=== PATIENT | female | born 1980 | race Caucasian/White ===

== ENCOUNTER → 2020-11-14 10:54 | Outpatient (CLI) | payer OTHER, BC, SELFPAY ==
--- NOTE | 2020-11-14 11:01 | XR_ITS ---
PROCEDURE: XR SHOULDER RT MIN 2V CLINICAL INDICATION: RT ANTERIOR SHOULDER PAIN COMPARISON: No exams were available for comparison FINDINGS: No fracture or dislocation. No lytic or blastic change. There is normal mineralization. The joint spaces are well-preserved. No significant degenerative/arthritic changes. No erosive changes evident. Other findings:There are mild hypertrophic changes of the distal aspect of the clavicle superiorly but no significant subacromial stenosis. IMPRESSION: Hypertrophy of the superior and distal aspect of the clavicle otherwise negative Dictated by: Chano Martinez MD 11/14/2020 12:16 Chano Martinez MD in [place] 11/14/2020 12:16
== END ==
PROVIDERS: PCP Nurse Practitioner Family; Visit Provider Nurse Practitioner Family
DX: M25.511 Pain in right shoulder (principal)
CPT/HCPCS: 73030

== ENCOUNTER → 2020-12-01 13:19 | Outpatient (CLI) | payer BC, SELFPAY | PROVIDERS: PCP Nurse Practitioner Family; Visit Provider Nurse Practitioner | DX: Z20.822 Contact with and (suspected) exposure to COVID-19 (principal) | CPT/HCPCS: C9803; U0003; U0005 ==

== ENCOUNTER 2021-01-09 10:00 | Outpatient (RCR) | payer OTHER, SELFPAY ==
--- NOTE | 2020-12-12 10:36 | HMH.OTOPEV ---
OT Inpatient Evaluation Rehab OT Outpatient Eval Start: 12/12/20 10:23 Freq: Status: Active Protocol: Document 12/12/20 10:24 RMARSHALL (Rec: 12[facility]12/20 10[facility]36 [id number] Electronically Signed By Yue Gomez OT 12/12/20 10:24 Outpatient Therapy Subjective History Subjective History Pt is a 40 year old female who reports to therapy for initial evaluation to right shoulder. 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 This specific area does require repetitive us of bilateral UE' s; some movements require her to lift overhead. Pt has been working at this job for 8 years. She does not recall a specific accident initiating her pain at right shoulder. However, her pain started ~5-6 weeks ago. Pt does test positive for Right shoulder impingement. Pt demonstrates a slight decreased in AROM and strength. Pt will continue to be seen twice a week to address all deficits. Chief Complaint Pain,Stiff,Weakness Symptom Type Ache,Throb,Sharp,Dull Symptoms Relieved By Rest/Positioning,OTC Meds, Prescription Meds Symptoms Aggravated By Physical Activity,Lifting Prior Functional Limitations None Current Functional Limitations Reaching,Lifting,Housework, Sleeping,Recreation Activity Symptom Description Intermittent,Activity Dependent Level of pain today (0-10) 2 Pain scale - at its best (0-10) 0 Pain scale - at its worst (0-10) 7 Shoulder/Elbow Eval Shoulder Objective Measurements Shoulder ROM Right Shoulder Abduction Active Range of 140 degrees Motion (degrees) Shoulder Flexion Active Range of Motion 130 degrees (degrees) Query Text: Shoulder External Rotation Active Range 75 degrees of Motion (degrees) Shoulder Internal Rotation Active Range 55 degrees of Motion (degrees) Shoulder MMT Shoulder Abduction Strength Grade 3 Fair Shoulder Extension Strength Grade 3 Fair Shoulder Flexion Strength Grade 3- Fair- Shoulder External Rotation Strength 3- Fair- Grade Shoulder Internal Rota
--- NOTE | 2021-01-09 10:52 | HMH.RHREAS ---
Rehab Reassessment Rehab OP Re-assessment Start: 01/09/21 10:02 Freq: Status: Active Protocol: Document 01/09/21 10:02 YECENIA (Rec: 01/09/21 10:52 [id number] Electronically Signed By Yue Gomez OT 01/09/21 10:02 Rehab Re-assessment Subjective Subjective I am still having pain. Objective Objective Notes Pt continues to be seen twice a week in order to address Right shoulder. Each session pt engages in R shoulder AROM, AAROM, and strengthenign exercises. Pt also receives modalities in order to decrease pain. Assessment Assessment Notes Pt's AROM has improved minimally since initial evaluation. However, pt continues to complain of 6/10 pain at it's worst. Pt reports the pain is not constant, but after using the the arm all day at work she still has pain. As of right now, she is not on any restrictions at work and is continuing to do a lot of lifting, push/pull, and overhead use. Therapist has recommended pt return to doctor for possible referral to ortho and MRI for further evaluation. AROM/MMT R shoulder Flexion: 138 degrees; 3+ Abd: 140 degrees; 3+ ER: 90 degrees: 3+ IR: 90 degrees ; 3+ Patient goals met ST, 3, and 5 Goals Not Met Seel below Revised Goals ST and 4 LT-5 Plan Plan Continue with OT plan of care at this time. Therapist recommends she returns to the doctor for further evaluation due to continued pain. Frequency of Therapy 2x's a week Duration of therapy 4 weeks Time and Billing Re-Eval Time 10 Re-Eval Billing Units 1 PHYSICIAN CERTIFICATION: I certify the specified therapy services for S
== END 2021-01-09 10:05 | disposition home or self-care (01) ==
LOC: OT 10:00
PROVIDERS: Visit Provider Nurse Practitioner Family
DX: M25.511 Pain in right shoulder (principal)
CPT/HCPCS: 97014; 97110; 97164; 97166; G0283

== ENCOUNTER 2021-08-02 01:07 | Emergency (ER) | payer BC, SELFPAY ==
[2021-08-02 01:08] VITALS: BP 149/89; PULSE 131; RESP 22; TEMP 37.3; O2SAT 99; BMI 28.3
[2021-08-02 01:15] VITALS: BMI 28.3
--- NOTE | 2021-08-02 01:16 | XR_ITS ---
PROCEDURE INFORMATION: Exam: XR Chest Exam date and time: 08/02/2021 1:36 AM Age: 41 years old Clinical indication: Fever and tachypnea; Additional info: Fever, shaking TECHNIQUE: Imaging protocol: XR of the chest. Views: 2 views. COMPARISON: CR XR SHOULDER RT MIN 2V 11/14/2020 11:03 AM FINDINGS: Lungs: Unremarkable. No consolidation. Pleural spaces: Unremarkable. No pleural effusion. No pneumothorax. Heart/Mediastinum: Unremarkable. No cardiomegaly. Bones/joints: Unremarkable. IMPRESSION: No acute cardiopulmonary abnormality.
--- NOTE | 2021-08-02 01:16 | ECG_ITS ---
APPROVED REPORT Exam: Resting ECG HR:136 bpm ECG Measurements Heart Rate 136 AXES UT 112 P 55 QRSd 100 QRS 64 QT 331 T 15 QTc 410 Conclusion SINUS TACHYCARDIA WITH SHORT UT INTERVAL NONSPECIFIC ST & T-WAVE ABNORMALITY ABNORMAL RHYTHM ECG UNCONFIRMED REPORT Electronically signed by : Frederick Alvarez MD 08/02/2021 08:42:48
[2021-08-02 01:29] LABS: Basophils # 0.1 K/mm3 (0-0.2); Basophils % 1.3 % (0.1-2.0); Eosinophils # 0.2 K/mm3 (0.0-0.4); Eosinophils % 1.9 % (0.1-12.0); Hematocrit 33.9 % (37.0-47.0); Hemoglobin 10.7 g/dL (12.2-16.2); Lymphocytes # 1.2 K/mm3 (0.7-4.5); Lymphocytes % 14.3 % (10-50); Mean Corpuscular HGB Conc 31.7 g/dL (31.8-35.4); Mean Corpuscular Hemoglobin 25.7 pg (27.0-31.2); Mean Corpuscular Volume 81.1 fl (81-99); Mean Platelet Volume 7.2 fl (7.4-10.4); Monocytes # 0.1 K/mm3 (0.1-1.0); Monocytes % 1.4 % (1.7-9.3); Neutrophils # 6.6 K/mm3 (1.8-7.8); Neutrophils % 81.2 % (37.0-80.0); Platelet Count 921 K/mm3 (142-424); Red Blood Count 4.18 M/mm3 (4.20-5.40); Red Cell Distribution Width 18.1 % (11.5-17.5); White Blood Count 8.1 K/mm3 (4.8-10.8)
[2021-08-02 01:30] VITALS: BP 134/92; PULSE 131; RESP 22; O2SAT 95
[2021-08-02 01:32] LABS: Chloride 108 mmol/L (98-107); Potassium 3.7 mmoL/L (3.5-5.1); Sodium 140 mmol/L (136-145)
[2021-08-02 01:35] LABS: Alanine Aminotransferase 23 U/L (12-78); Albumin Level 3.9 g/dl (3.5-5.0); Albumin/Globulin Ratio 1.3 (1.1-1.8); Alkaline Phosphatase 95 U/L (38-126); Anion Gap 13.7 mEq/L (5-15); Aspartate Amino Transferase 28 U/L (14-36); Bilirubin,Total 0.3 mg/dl (0.2-1.3); Blood Urea Nitrogen 15 mg/dl (7-17); Calcium 9.3 mg/dl (8.4-10.2); Carbon Dioxide 22 mmol/L (22.0-30.0); Creatinine Clearance Estimated 130 mL/min (50-200); Estimated Glomerular Filt Rate 93 ml/min (>60); GFR (African American) 112 ML/MIN (>60); Globulin 3.1 g/dL (1.3-3.2); Glucose 174 mg/dl (74-100)
[2021-08-02 01:59] LABS: Coronavirus 19, PCR Not Detected (NotDetected); Influenza A, PCR Not Detected (NotDetected); Influenza B, PCR Not Detected (NotDetected)
[2021-08-02 02:00] VITALS: BP 140/77; PULSE 131; RESP 22; O2SAT 95
[2021-08-02 02:03] LABS: Procalcitonin 0.255 ng/mL (0.0-2.0)
[2021-08-02 02:04] LABS: Erythrocyte Sedimentation Rate 71 mm/hr (0-20); Troponin I < 0.01 ng/ml (0.00-0.034)
[2021-08-02 02:13] LABS: Microscopic, Urine URINE MICROSCOPIC (MICROSCOPIC)
[2021-08-02 02:14] LABS: Appearance,Urine CLEAR (Clear); Bilirubin,Urine Negative (Negative); Blood, Urine Negative (Negative); Color,Urine YELLOW (Yellow); Glucose,Urine (UA) Negative (Negative); Ketones,Urine Negative (Negative); Leukocyte Esterase,Urine 1+ (Negative); Nitrate,Urine Negative (Negative); PH,Urine 5.5 (5.0-8.5); Protein,Urine Negative (Negative); Specific Gravity, Urine 1.015 (1.005-1.030); Urobilinogen,Urine 0.2 EU/dl (0.2)
[2021-08-02 02:23] LABS: Activated Partial Thrombo Time 22.5 seconds (22.8-30.6); INR 0.94 (0.9-1.1); Prothrombin Time 10.7 seconds (10.1-12.5)
[2021-08-02 02:30] LABS: Bacteria,Urine 1+ /lpf
[2021-08-02 02:31] VITALS: BP 116/60; PULSE 123; RESP 16; O2SAT 95
--- NOTE | 2021-08-02 02:38 | HMH.EDANX ---
ED Disposition Clinical Impression: SIRS (systemic inflammatory response syndrome), Severe sepsis with acute organ dysfunction UTI (urinary tract infection) Qualifiers: Urinary tract infection type: site unspecified Hematuria presence: without hematuria Qualified Code(s): N39.0 - Urinary tract infection, site not specified Disposition: Home, Self-Care Condition on Discharge: Good Instructions: DI for Urinary Tract Infection (UTI) Additional Instructions: fluids and call pcp about culture results Prescriptions: levoFLOXacin [Levaquin 500mg tab] 500 mg PO DAILY #7 tab Transmission Status: Pending to [facility] Referrals: Maryam Drake APRN [Primary Care Provider] - - Critical Care Critical Care Time: No Attestation: On 08/02/21, the high probability of a clinically significant, sudden or life threatening deterioration of the following system(s) required my full and direct attention, intervention and personal management. The time I documented below is in addition to time spent performing reported procedures but includes the following listed in this critical care notation. Medical Decision Making - Medical Records Medical records reviewed: Yes: I reviewed the patient's medical records. - Mikal Inquiry Pt receiving controlled substance: No Vital Signs: 08/02/21 01:08 08/02/21 01:30 08/02/21 02:00 Temperature 99.2 F Temperature Source Oral Pulse Rate 131 H 131 H Pulse Rate [Right] 131 H Respiratory Rate 22 22 22 Blood Pressure 134/92 H 140/77 Blood Pressure [Right Arm] 149/89 H Blood Pressure Mean 116 98 Blood Pressure Mean [Right Arm] 109 02 Sat by Pulse Oximetry 99 95 95 08/02/21 02:31 Temperature Temperature Source Pulse Rate 123 H Pulse Rate [Right] Respiratory Rate 16 Blood Pressure 116/60 Blood Pressure [Right Arm] Blood Pressure Mean 78 Blood Pressure Mean [Right Arm] 02 Sat by Pulse Oximetry 95 - Lab Data Lab results reviewed: Yes: I reviewed the patient's lab results. Lab Results 08/02/21 01:20: WBC 8.1, RBC 4.18 L, Hgb 10.7 L, Hct 33.9 L, MCV 81.1, MCH 25.7 L, MCHC 31.7 L, RDW 18.1 H, Plt Count 921 H*, MPV 7.2 L, Neut % (Auto) 81.2 H, Lymph % (Auto) 14.3, [place] % (Auto) 1.4 L, Eos % (Auto) 1.9, Baso % (Auto) 1.3, Neut # (Auto) 6.6, Lymph # (Auto) 1.2, [place] # (Auto) 0.1, Eos # (Auto) 0.2, Baso # (Auto) 0.1, ESR 71 H 08/02/21 01:20: Sodium 140, Potassium 3.7, Chloride 108 H, Carbon Dioxide 22, Anion Gap 13.7, BUN 15, Creatinine 0.70, Estimated Creat Clear 130, Estimated GFR 93, Est GFR ( Amer) 112, Glucose 174 H, Calcium 9.3, Total Bilirubin 0.3, AST 28, ALT 23, Alkaline Phosphatase 95, Troponin I < 0.01, C-Reactive Protein 3.0, Total Protein 7.0, Albumin 3.9, Globulin 3.1, Albumin/Globulin Ratio 1.3, Procalcitonin 0.255 08/02/21 01:20: PT 10.7, INR 0.94, APTT 22.5 L 08/02/21 01:50: SARS-CoV-2 (PCR) Not detected, Influenza A Untype (PCR) Not detected, Influenza Type B (PCR) Not detected 08/02/21 02:09: Urine Color Yellow, Urine Appearance Clear, Urine pH 5.5, Ur Specific Morrison 1.015, Urine Protein Negative, Urine Glucose (UA) Negative, Urine Ketones Negative, Urine Blood Negative, Urine Nitrate Negative, Urine Bilirubin Negative, Urine Urobilinogen 0.2, Ur Leukocyte Esterase 1+ A, Urine WBC 5-10, Urine Bacteria 1+ 08/02/21 02:50: Lactate 2.2 H Result diagrams: 08/02/21 01:20 08/02/21 01:20 Orders (Tests/Meds): ED MEDICATIONS Generic Name Dose Route Start Last Admin Trade Name Freq PRN Reason Stop Dose Admin Sodium Chloride 1,000 mls @ 999 mls/hr 08/02/21 01:30 08/02/21 01:30 Sod Chlor 0.9% 1000ml Bag IV 08/02/21 02:30 999 mls/hr .Q1H1M EDELMIRA Administration Ceftriaxone Sodium 1 gm/ 50 mls @ 100 mls/hr 08/02/21 02:45 08/02/21 02:42 Sodium Chloride IV 08/16/21 02:44 100 mls/hr Q24H EDELMIRA Administration Sodium Chloride 1,000 mls @ 999 mls/hr 08/02/21 02:45 08/02/21 02:45 Sod Chlor 0.9% 1000ml Bag IV 08/02/21 03:45
[2021-08-02 03:25] LABS: Lactic Acid 2.2 mmol/L (0.7-2.1)
[2021-08-02 04:07] VITALS: BP 116/60; PULSE 105; RESP 18; TEMP 36.7; O2SAT 99
[2021-08-02 04:46] LABS: POC Glucose,Bedside 188 (70-110)
[2021-08-04 03:01] LABS: Peripheral Smear Review Scanned Result
== END 2021-08-02 04:22 | disposition home or self-care (01) ==
PROVIDERS: Emergency Provider Emergency Medicine; PCP Nurse Practitioner Family
DX: N39.0 Urinary tract infection, site not specified (principal); R65.10 Systemic inflammatory response syndrome (SIRS) of non-infectious origin without acute organ dysfunction; R00.0 Tachycardia, unspecified; R51.9 Headache, unspecified; Z20.822 Contact with and (suspected) exposure to COVID-19; R06.00 Dyspnea, unspecified; E78.5 Hyperlipidemia, unspecified; F41.9 Anxiety disorder, unspecified; Z79.84 Long term (current) use of oral hypoglycemic drugs; Z79.4 Long term (current) use of insulin; Z79.899 Other long term (current) drug therapy; Z88.2 Allergy status to sulfonamides; Z88.8 Allergy status to other drugs, medicaments and biological substances; Z82.49 Family history of ischemic heart disease and other diseases of the circulatory system; Z80.9 Family history of malignant neoplasm, unspecified; Z83.3 Family history of diabetes mellitus; Z83.438 Family history of other disorder of lipoprotein metabolism and other lipidemia
CPT/HCPCS: 71046; 80053; 81001; 82962; 83605; 84145; 84484; 85025; 85610; 85651; 85730; 86140; 87040; 87086; 93005; 96361; 96374; 96375; 99285; C9803; J0696; U0003; U0005

== ENCOUNTER → 2021-08-10 08:47 | Outpatient (CLI) | payer BC, SELFPAY ==
[2021-08-10 09:07] LABS: Basophils # 0.1 K/mm3 (0-0.2); Basophils % 1.8 % (0.1-2.0); Eosinophils # 0.3 K/mm3 (0.0-0.4); Eosinophils % 3.7 % (0.1-12.0); Hematocrit 35.8 % (37.0-47.0); Hemoglobin 11.2 g/dL (12.2-16.2); Lymphocytes # 3.5 K/mm3 (0.7-4.5); Lymphocytes % 48.4 % (10-50); Mean Corpuscular HGB Conc 31.2 g/dL (31.8-35.4); Mean Corpuscular Hemoglobin 26.4 pg (27.0-31.2); Mean Corpuscular Volume 84.5 fl (81-99); Monocytes # 0.6 K/mm3 (0.1-1.0); Monocytes % 7.8 % (1.7-9.3); Neutrophils # 2.8 K/mm3 (1.8-7.8); Neutrophils % 38.3 % (37.0-80.0); Platelet Count 919 K/mm3 (142-424); Red Blood Count 4.23 M/mm3 (4.20-5.40); Red Cell Distribution Width 17.9 % (11.5-17.5); White Blood Count 7.2 K/mm3 (4.8-10.8)
== END ==
PROVIDERS: Visit Provider Nurse Practitioner Family
DX: D69.1 Qualitative platelet defects (principal)
CPT/HCPCS: 36415; 85025

== ENCOUNTER → 2021-08-30 09:44 | Outpatient (CLI) | payer BC, SELFPAY ==
[2021-08-30 10:25] LABS: Basophils # 0.2 K/mm3 (0-0.2); Eosinophils # 0.2 K/mm3 (0.0-0.4); Eosinophils % 2.7 % (0.1-12.0); Hematocrit 40.6 % (37.0-47.0); Hemoglobin 12.7 g/dL (12.2-16.2); Lymphocytes # 3.6 K/mm3 (0.7-4.5); Lymphocytes % 47.7 % (10-50); Mean Corpuscular HGB Conc 31.4 g/dL (31.8-35.4); Mean Corpuscular Hemoglobin 27.5 pg (27.0-31.2); Mean Corpuscular Volume 87.5 fl (81-99); Mean Platelet Volume 7.3 fl (7.4-10.4); Monocytes # 0.5 K/mm3 (0.1-1.0); Monocytes % 6.5 % (1.7-9.3); Neutrophils # 3.1 K/mm3 (1.8-7.8); Platelet Count 521 K/mm3 (142-424); Red Blood Count 4.64 M/mm3 (4.20-5.40); Red Cell Distribution Width 18.4 % (11.5-17.5); White Blood Count 7.5 K/mm3 (4.8-10.8)
[2021-08-30 11:16] LABS: Iron 94 ug/dL (37-170)
[2021-08-30 11:31] LABS: Total Iron Binding Capacity 399 ug/dL (265-497)
[2021-08-30 11:53] LABS: Ferritin 11.5 ng/ml (6.24-137)
[2021-09-05 18:09] LABS: Interpretation: Negative (.)
== END ==
PROVIDERS: PCP Nurse Practitioner Family; Visit Provider Internal Medicine Medical Oncology
DX: D75.839 Thrombocytosis, unspecified (principal); D50.8 Other iron deficiency anemias
CPT/HCPCS: 36415; 81206; 81270; 82728; 83540; 83550; 85025

== ENCOUNTER → 2022-01-22 09:21 | Outpatient (CLI) | payer BC, SELFPAY ==
--- NOTE | 2022-01-22 09:24 | MM_ITS ---
PROCEDURE INFORMATION: Exam: MG Bilateral Screening 3D Mammography Exam date and time: 01/22/2022 9:25 AM Age: 41 years old Clinical indication: Screening examination. No family history of breast cancer. TECHNIQUE: Imaging protocol: Bilateral Screening tomosynthesis and 2D mammography including computer-aided detection (CAD) when performed. COMPARISON: 1. MG DMDXUL DIG MAMM-DX UNI-LT 02/26/2013 8:59 AM 2. MG DMDB DIG MAMM-DX CLARK 09/22/2012 8:28 AM 3. BL US BREAST-LT 09/22/2012 8:51 AM FINDINGS: MAMMOGRAPHY: Breast composition: There are scattered areas of fibroglandular density. Mass: No suspicious mass. Architectural distortion: None. Calcifications: No suspicious calcifications. Asymmetric density: None. Skin thickening: None. Axillary adenopathy: None. IMPRESSION: No mammographic evidence of malignancy. Annual screening is recommended unless otherwise clinically indicated. ASSESSMENT: BI-RADS Category 1: Negative
== END ==
PROVIDERS: PCP Nurse Practitioner Family; Visit Provider Nurse Practitioner Family
DX: Z12.31 Encounter for screening mammogram for malignant neoplasm of breast (principal)
CPT/HCPCS: 77063; 77067

== ENCOUNTER → 2022-06-28 15:27 | Outpatient (CLI) | payer OTHER, SELFPAY ==
[2022-06-28 17:26] LABS: Basophils # 0.1 K/mm3 (0-0.2); Basophils % 0.6 % (0.1-2.0); Eosinophils # 0.3 K/mm3 (0.0-0.4); Eosinophils % 2.8 % (0.1-12.0); Hematocrit 39.5 % (37.0-47.0); Hemoglobin 12.4 g/dL (12.2-16.2); Lymphocytes # 4.4 K/mm3 (0.7-4.5); Lymphocytes % 49.3 % (10-50); Mean Corpuscular HGB Conc 31.5 g/dL (31.8-35.4); Mean Corpuscular Hemoglobin 26.5 pg (27.0-31.2); Mean Corpuscular Volume 84.1 fl (81-99); Mean Platelet Volume 7.4 fl (7.4-10.4); Monocytes # 0.8 K/mm3 (0.1-1.0); Monocytes % 8.5 % (1.7-9.3); Neutrophils # 3.5 K/mm3 (1.8-7.8); Neutrophils % 38.8 % (37.0-80.0); Platelet Count 681 K/mm3 (142-424); Red Blood Count 4.69 M/mm3 (4.20-5.40); White Blood Count 8.9 K/mm3 (4.8-10.8)
[2022-06-28 17:45] LABS: Alanine Aminotransferase 23 U/L (12-78); Albumin/Globulin Ratio 1.4 (1.1-1.8); Alkaline Phosphatase 80 U/L (38-126); Anion Gap 11.5 mEq/L (5-15); Aspartate Amino Transferase 25 U/L (14-36); Bilirubin,Total 0.2 mg/dl (0.2-1.3); Blood Urea Nitrogen 12 mg/dl (7-17); Calcium 9.4 mg/dl (8.4-10.2); Carbon Dioxide 24 mmol/L (22.0-30.0); Chloride 105 mmol/L (98-107); Estimated Glomerular Filt Rate 92 ml/min (>60); GFR (African American) 112 ML/MIN (>60); Globulin 2.8 g/dL (1.3-3.2); Glucose 138 mg/dl (74-100); Magnesium 1.9 mg/dl (1.6-2.3); Potassium 4.5 mmoL/L (3.5-5.1); Sodium 136 mmol/L (136-145); Total Protein,Serum 6.8 g/dl (6.3-8.2)
[2022-06-28 17:59] LABS: Troponin I < 0.01 ng/ml (0.00-0.034)
[2022-06-28 18:17] LABS: Thyroid Stimulating Hormone 1.67 uIU/mL (0.465-4.68)
== END ==
PROVIDERS: PCP Nurse Practitioner Family; Visit Provider Nurse Practitioner Family
DX: E11.9 Type 2 diabetes mellitus without complications (principal); R07.9 Chest pain, unspecified; Z82.49 Family history of ischemic heart disease and other diseases of the circulatory system; Z79.4 Long term (current) use of insulin
CPT/HCPCS: 36415; 80053; 83735; 84443; 84484; 85025

== ENCOUNTER → 2022-07-26 08:09 | Outpatient (CLI) | payer SELFPAY ==
--- NOTE | 2022-07-26 08:30 | CT_ITS ---
FINAL REPORT TECHNIQUE: Thin-section axial images were obtained through the heart and coronary arteries per CT coronary calcium score protocol. The study was performed with techniques to keep radiation doses as low as reasonably achievable (ALARA). Individual dose reduction technique using automated exposure control adjustment of mA and/or kv according to the patient's size were employed. CLINICAL HISTORY: chest pain COMPARISON: None FINDINGS: On the axial images, there is calcification within the LAD distribution. This gives a coronary artery calcium score of 16.49 based on the Agatston scale. The coronary artery calcium score places the patient within the 99 percentile based on age and gender. The heart size is normal. There is no pleural pericardial effusion. Limited evaluation of the lungs reveals no suspicious nodule. IMPRESSION: Coronary artery calcium score places patient within 99 percentile based on age and gender. Reviewed, Interpreted and Dictated by Jose Ramon Sneed MD Transcribed by Fabiola Bocanegra Authenticated and [facility][1]
== END ==
PROVIDERS: PCP Nurse Practitioner Family; Visit Provider Physician Assistant
DX: R07.9 Chest pain, unspecified (principal); Z13.6 Encounter for screening for cardiovascular disorders
CPT/HCPCS: 75571

== ENCOUNTER → 2022-07-26 08:13 | Outpatient (CLI) | payer OTHER, SELFPAY ==
[2022-07-26 10:53] LABS: Alanine Aminotransferase 24 U/L (12-78); Albumin Level 3.8 g/dl (3.5-5.0); Alkaline Phosphatase 80 U/L (38-126); Aspartate Amino Transferase 28 U/L (14-36); Bilirubin,Indirect 0.3 mg/dL (0.0-0.9); Bilirubin,Total 0.3 mg/dl (0.2-1.3); Bilirubin,Unconjugated 0.4 mg/dL (0.0-1.1); Chol/HDL Ratio 3.6 (1-3.5); Cholesterol 167 mg/dl (140-200); HDL Cholesterol 46 mg/dl (40-60); Total Protein,Serum 6.4 g/dl (6.3-8.2); Triglycerides 177 mg/dl (30-150); VLDL Cholesterol 35 mg/dL (0-40)
[2022-07-26 11:04] LABS: Direct LDL Cholesterol 89.87 mg/dL (100-129)
--- NOTE | 2022-07-26 15:09 | CA_ITS ---
APPROVED REPORT Exam: Exercise Treadmill Technologist: Roxanna Hall, Ht: 5 ft 5 in Wt: 180 lbs BSA: 1.89 m2 HR: 96 bpm BP: 152/93 mmHg Medical History Medications: Pravastatin,,,,, Metformin,,,,, Levocetirizine,,,,, Multivitamin,,,,, MeDroxyprogesterone,,,,, SeMaglutide,,,,, Diclofenac Sodium,,,,, INSULIN GLARGINE,,,,, Stress Test Details Test: Ravi HR Resting HR: 106 bpm Max Heart Rate (APMHR): 179.615727 bpm Max HR Achieved: 179 bpm Target HR (85% APMHR): 152.160106 bpm % of APMHR: 100.00 Recovery HR: 109 bpm BP Resting BP: 147.0/91.0 mmHg Max BP: 182.0/80.0 mmHg Recovery BP: 132.0/90.0 mmHg ECG Resting ECG: SR Clinical Exercise duration: 09:00 min Highest Stage Achieved: III Exercise capacity: 10.1 METs Stress ECG Conclusion Max HR: 172 % of PM: 100% Max BP: 182/80 METs: 10.1 Test stopped due to: fatigue Symptoms: SOA, leg fatigue Arrhythmias/Ectopy: occasional PAC ST-T Changes: none Conclusion: no ischemic changes Test Summary REST . . . . . . . Sitting REST . . . . . . . Sitting REST 03:20 0.0 0.0 106 . 147/ 91 . . Stage 1 01:00 10.0 1.7 126 . . . . Stage 1 02:00 10.0 1.7 138 . . . . Stage 1 03:00 10.0 1.7 136 . 164/ 78 . . Stage 2 01:00 12.0 2.5 151 . . . . Stage 2 02:00 12.0 2.5 150 . . . . Stage 2 03:00 12.0 2.5 158 . 162/ 82 . . Stage 3 01:00 14.0 3.4 168 . . . . Stage 3 02:00 14.0 3.4 176 . . . . Stage 3 03:00 14.0 3.4 179 . 182/ 80 . Stop exercise at 09:00 RECOVERY 01:00 0.0 0.0 160 . . . . RECOVERY 02:00 0.0 0.0 131 . 171/ 87 . . RECOVERY 03:00 0.0 0.0 127 . 171/ 87 . . RECOVERY 04:00 0.0 0.0 116 . 171/ 87 . . RECOVERY 05:00 0.0 0.0 128 . 137/ 86 . . RECOVERY 06:00 0.0 0.0 119 . 137/ 86 . . RECOVERY 07:00 0.0 0.0 114 . 131/ 91 . . RECOVERY 07:51 0.0 0.0 120 . 132/ 90 . . Electronically signed by : Alex Zhou MD 07/29/2022 08:44:17
== END ==
PROVIDERS: PCP Nurse Practitioner Family; Visit Provider Physician Assistant
DX: R07.9 Chest pain, unspecified (principal)
CPT/HCPCS: 36415; 80061; 80076; 93017; 93306

== ENCOUNTER → 2022-12-23 15:44 | Outpatient (CLI) | payer OTHER, SELFPAY ==
[2022-12-23 17:30] LABS: Basophils # 0.1 K/mm3 (0-0.2); Basophils % 0.6 % (0.1-2.0); Eosinophils # 0.9 K/mm3 (0.0-0.4); Eosinophils % 8.5 % (0.1-12.0); Hematocrit 41.4 % (37.0-47.0); Hemoglobin 12.8 g/dL (12.2-16.2); Lymphocytes # 4.4 K/mm3 (0.7-4.5); Lymphocytes % 39.8 % (10-50); Mean Corpuscular Hemoglobin 27.3 pg (27.0-31.2); Mean Corpuscular Volume 88.1 fl (81-99); Mean Platelet Volume 8.6 fl (7.4-10.4); Monocytes # 0.7 K/mm3 (0.1-1.0); Neutrophils % 45.2 % (37.0-80.0); Platelet Count 733 K/mm3 (142-424); White Blood Count 11.1 K/mm3 (4.8-10.8)
[2022-12-23 18:33] LABS: Chloride 104 mmol/L (98-107); Potassium 4.7 mmoL/L (3.5-5.1); Sodium 137 mmol/L (136-145)
[2022-12-23 18:35] LABS: Alanine Aminotransferase 33 U/L (12-78); Aspartate Amino Transferase 27 U/L (14-36); Blood Urea Nitrogen 12 mg/dl (7-17); Estimated Glomerular Filt Rate 110 ml/min (>60); GFR (African American) 133 ML/MIN (>60)
[2022-12-23 18:36] LABS: Albumin Level 3.6 g/dl (3.5-5.0); Albumin/Globulin Ratio 1.3 (1.1-1.8); Alkaline Phosphatase 93 U/L (38-126); Anion Gap 16.7 mEq/L (5-15); Calcium 8.9 mg/dl (8.4-10.2); Carbon Dioxide 21 mmol/L (22.0-30.0); Globulin 2.7 g/dL (1.3-3.2); Glucose 181 mg/dl (74-100); Total Protein,Serum 6.3 g/dl (6.3-8.2)
[2022-12-23 18:42] LABS: Bilirubin,Total 0.1 mg/dl (0.2-1.3)
[2022-12-23 18:44] LABS: Hemoglobin A1C 7.9 % (4.0-6.0)
== END ==
PROVIDERS: PCP Nurse Practitioner Family; Visit Provider Nurse Practitioner Family
DX: E11.9 Type 2 diabetes mellitus without complications (principal); D50.9 Iron deficiency anemia, unspecified; Z79.4 Long term (current) use of insulin
CPT/HCPCS: 80053; 82728; 83036; 85025

== ENCOUNTER 2023-01-10 12:12 | Outpatient (CLI) | payer OTHER, SELFPAY ==
[2023-01-10 12:45] VITALS: BP 103/64; PULSE 80
[2023-01-10 13:24] VITALS: BP 116/75; PULSE 80
== END 2023-01-10 13:30 | disposition home or self-care (01) ==
LOC: INF 12:13
PROVIDERS: PCP Nurse Practitioner Family; Visit Provider Nurse Practitioner Family
DX: D50.9 Iron deficiency anemia, unspecified (principal)
CPT/HCPCS: 96365; J1439

== ENCOUNTER 2023-01-17 12:13 | Outpatient (CLI) | payer OTHER, SELFPAY ==
[2023-01-17 12:30] VITALS: BP 113/77; PULSE 91; RESP 16
[2023-01-17 13:00] VITALS: BP 115/74; PULSE 91; RESP 16
== END 2023-01-17 13:10 | disposition home or self-care (01) ==
PROVIDERS: PCP Nurse Practitioner Family; Visit Provider Nurse Practitioner Family
DX: D50.9 Iron deficiency anemia, unspecified (principal)
CPT/HCPCS: 96365; J1439

== ENCOUNTER → 2023-02-14 14:26 | Outpatient (CLI) | payer OTHER, SELFPAY ==
[2023-02-14 12:57] LABS: Basophils # 0.1 K/mm3 (0-0.2); Basophils % 0.6 % (0.1-2.0); Eosinophils # 0.6 K/mm3 (0.0-0.4); Eosinophils % 4.6 % (0.1-12.0); Hematocrit 45.2 % (37.0-47.0); Hemoglobin 14.2 g/dL (12.2-16.2); Lymphocytes # 3.9 K/mm3 (0.7-4.5); Lymphocytes % 32.1 % (10-50); Mean Corpuscular HGB Conc 31.4 g/dL (31.8-35.4); Mean Corpuscular Hemoglobin 29.6 pg (27.0-31.2); Mean Corpuscular Volume 94.1 fl (81-99); Mean Platelet Volume 7.7 fl (7.4-10.4); Monocytes # 0.5 K/mm3 (0.1-1.0); Monocytes % 4.3 % (1.7-9.3); Neutrophils % 58.4 % (37.0-80.0); Platelet Count 480 K/mm3 (142-424); Red Blood Count 4.81 M/mm3 (4.20-5.40); Red Cell Distribution Width 16.7 % (11.5-17.5); White Blood Count 12.1 K/mm3 (4.8-10.8)
[2023-02-14 14:18] LABS: Ferritin 300 ng/ml (6.24-137)
== END ==
PROVIDERS: PCP Nurse Practitioner Family; Visit Provider Nurse Practitioner Family
DX: D50.9 Iron deficiency anemia, unspecified (principal)
CPT/HCPCS: 82728; 85025

== ENCOUNTER → 2023-03-11 08:54 | Outpatient (CLI) | payer OTHER, SELFPAY ==
--- NOTE | 2023-03-11 08:55 | XR_ITS ---
FINAL REPORT TECHNIQUE: Bone densitometry calculations of the lumbar spine and left hip were obtained. 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 Using the left hip, the bone mineral density of the femoral neck is 0.924 g/cm2, corresponding to a T-score of 0.7. Using the right hip, the bone mineral density of the femoral neck is 0.984 g/cm2, corresponding to a T-score of 0.3. NOTE: T-score: Standard deviation compared with peak bone mass of young adult mean. *Following the recommendations of the International Society of Bone densitometry, classification of hip BMD is based on the lower of two T-scores; total hip or femoral neck. IMPRESSION: Normal bone mineral density. FRAX was not reported because all of the T-scores are at or above negative 1.0 Reviewed, Interpreted and Dictated by Nahun Hoffman MD Transcribed by Phylicia Bergman Authenticated and [facility]
== END ==
PROVIDERS: PCP Nurse Practitioner Family; Visit Provider Nurse Practitioner Obstetrics & Gynecology
DX: Z79.3 Long term (current) use of hormonal contraceptives (principal)
CPT/HCPCS: 77080

== ENCOUNTER 2023-03-21 16:50 | Outpatient (CLI) | payer OTHER, SELFPAY ==
[2023-03-21 15:24] LABS: Basophils # 0.1 K/mm3 (0-0.2); Basophils % 0.9 % (0.1-2.0); Eosinophils # 0.5 K/mm3 (0.0-0.4); Eosinophils % 5.7 % (0.1-12.0); Hematocrit 43.2 % (37.0-47.0); Hemoglobin 13.8 g/dL (12.2-16.2); Lymphocytes # 3.7 K/mm3 (0.7-4.5); Lymphocytes % 41.8 % (10-50); Mean Platelet Volume 9.4 fl (7.4-10.4); Monocytes # 0.5 K/mm3 (0.1-1.0); Monocytes % 5.8 % (1.7-9.3); Neutrophils % 45.8 % (37.0-80.0); Platelet Count 564 K/mm3 (142-424); Red Blood Count 4.45 M/mm3 (4.20-5.40); Red Cell Distribution Width 14.4 % (11.5-17.5); White Blood Count 8.8 K/mm3 (4.8-10.8)
[2023-03-21 15:41] LABS: Chloride 105 mmol/L (98-107)
[2023-03-21 15:42] LABS: Potassium 5.6 mmoL/L (3.5-5.1); Sodium 140 mmol/L (136-145)
[2023-03-21 15:44] LABS: Alanine Aminotransferase 71 U/L (12-78); Albumin Level 4.1 g/dl (3.5-5.0); Albumin/Globulin Ratio 1.6 (1.1-1.8); Alkaline Phosphatase 95 U/L (38-126); Anion Gap 13.6 mEq/L (5-15); Aspartate Amino Transferase 41 U/L (14-36); Bilirubin,Total 0.5 mg/dl (0.2-1.3); Blood Urea Nitrogen 26 mg/dl (7-17); Carbon Dioxide 27 mmol/L (22.0-30.0); Estimated Glomerular Filt Rate 92 ml/min (>60); GFR (African American) 112 ML/MIN (>60); Globulin 2.5 g/dL (1.3-3.2); Total Protein,Serum 6.6 g/dl (6.3-8.2)
[2023-03-21 15:45] LABS: Calcium 9.3 mg/dl (8.4-10.2); Glucose 91 mg/dl (74-100)
[2023-03-21 16:18] LABS: Ferritin 233 ng/ml (6.24-137)
== END 2023-03-21 23:59 ==
LOC: LAB.DROPOF 16:50
PROVIDERS: PCP Nurse Practitioner Family; Visit Provider Nurse Practitioner Family
DX: E11.9 Type 2 diabetes mellitus without complications (principal); D50.9 Iron deficiency anemia, unspecified; Z79.4 Long term (current) use of insulin
CPT/HCPCS: 80053; 82043; 82728; 83036; 85025

== ENCOUNTER 2023-04-27 12:53 | Emergency (ER) | payer OTHER, SELFPAY ==
[2023-04-27 12:54] VITALS: BP 172/106; PULSE 89; RESP 18; TEMP 36.8; O2SAT 100; BMI 29.6
--- NOTE | 2023-04-27 13:11 | XR_ITS ---
PROCEDURE INFORMATION: Exam: XR Right Forearm Exam date and time: 04/27/2023 1:14 PM Age: 42 years old Clinical indication: Injury or trauma; Arm, lower; Patient HX: Dog bite/laceration to right proximal forearm. TECHNIQUE: Imaging protocol: Radiologic exam of the right forearm. Views: 2 views. COMPARISON: No relevant prior studies available. FINDINGS: Bones/joints: Osseous structures are intact. No fracture or malalignment. Joint surfaces preserved. Soft tissues: Soft tissue injury with overlying dressing along the proximal forearm. No radiopaque foreign body evident. IMPRESSION: No acute bony abnormalities.
[2023-04-27 13:30] VITALS: BP 123/89; PULSE 89; RESP 16; O2SAT 98
--- NOTE | 2023-04-27 13:39 | PC.NURSE ---
Dr. Bingham at [facility]
[2023-04-27] MEDS: ACETAMINOPHEN 500MG TAB 1000 MG PO (13:52)
[2023-04-27] MEDS: AMOXICILLIN/CLAVULANATE POTASSIUM 875/125MG TABLET 1 EACH PO (13:52)
[2023-04-27 14:00] VITALS: BP 132/93; PULSE 92; RESP 16; O2SAT 98
[2023-04-27 14:15] VITALS: BP 132/93; PULSE 88; RESP 18; TEMP 36.8; O2SAT 100
--- NOTE | 2023-04-27 14:16 | ED_ITS ---
Discharge Plan Disposition Patient Disposition: Home, Self-Care Prescriptions Prescriptions: New amoxicillin-pot clavulanate 875-125 mg tablet 1 tab PO BID 10 Days Qty: 20 0RF No Action (DME) pen needle, diabetic 31 gauge x 5/16 needle See Dose Instructions .ROUTE .MEDSUPPLY Qty: 100 Dose Instruction: As directed Patient Comments: USE DIRECTED Rx Instructions: As directed medroxyprogesterone 150 mg/mL suspension 150 mg IM [id number] Qty: 1 1RF Toujeo Max U-300 SoloStar 300 unit/mL (3 mL) insulin pen 300 unit SQ Ozempic 2 mg/dose (8 mg/3 mL) pen injector 2 mg SQ calcium carbonate [Calcium 600] 600 mg calcium (1,500 mg) tablet 600 mg PO DAILY metformin 1,000 mg tablet 1,000 mg PO BID 30 Days Qty: 60 3RF hydrocortisone [Anti-Itch (HC)] 1 % cream 1 applic topical TID PRN (Reason: itching) Qty: 120 0RF ciclopirox 8 % solution 1 applic topical DAILY 90 Days Qty: 6.6 3RF Rx Instructions: Apply directed to affected toenail daily. Smooth with emery board weekly. urea 40 % cream 1 applic topical BID Qty: 60 3RF valacyclovir [Valtrex] 1 gram tablet 1,000 mg PO DAILY PRN bisoprolol fumarate 5 mg tablet 5 mg PO DAILY Qty: 90 1RF omeprazole 40 mg capsule,delayed release(DR/EC) 40 mg PO DAILY Qty: 90 3RF losartan 50 mg tablet 50 mg PO DAILY Qty: 30 6RF atorvastatin [Lipitor] 40 mg tablet 40 mg PO DAILY Qty: 30 2RF levocetirizine 5 mg tablet 5 mg PO DAILY Qty: 30 2RF diclofenac sodium 75 mg tablet,delayed release (DR/EC) 75 mg PO BID 30 Days Qty: 60 2RF Referrals Follow up/Referrals: Maryam Drake APRN [Primary Care Provider] - See instructions Activity Restrictions/Add. Instructions Additional Instructions/Restrictions: Please have your sutures removed in 7 to 10 days return with any spreading redness or pus. Clinical Impressions Clinical Impression: Dog bite, Forearm laceration Instructions Patient Instructions: Animal Bites Discharge ED Provider: Jorge L Bingham General Adult HPI General Chief complaint: Animal Bite Stated complaint: AO dog bite on left arm Time Seen by Provider: 04/27/23 13:26 Mode of Arrival: Ambulatory Source of Information: Patient Limitations: No Limitations Description of Symptoms (Recalled from ER Triage Doc. by RN): PT WITH DOG BITE TO RIGHT FOREARM ABOUT 1245. DOG DOES NOT BELONG TO PT, UNKNOWN VACCINATION STATUS OF DOG. PT IS UTD ON TD History of Present Illness HPI narrative: Patient is a 42-year-old female presenting today with a laceration to her right forearm after dog bite. States that this was at her house where it was their own pet and the dog attacked her and bit her on her arm. After discussing with the family who owns the dog the dog is vaccinated. [place] therefore this was a provoked attack. Dog has been acting normally prior to this. She has normal flexion and extension in her hand up-to-date on tetanus. Related Data Home Medications Medication Instructions Recorded Confirmed pen needle, diabetic 31 gauge x #100 ea 12/23/18 04/16/2307/30 calcium carbonate 600 mg calcium 600 mg PO DAILY 12/23/22 04/16/23 (1,500 mg) tablet (Calcium) insulin glargine U-300 conc 300 300 unit SQ 01/22/23 04/16/23 unit/mL (3 mL) subcutaneous pen (Toujeo Max U-300 SoloStar) semaglutide 2 mg/dose (8 mg/3 mL) 2 mg SQ 01/22/23 04/16/23 subcutaneous pen injector (Ozempic) valacyclovir 1 gram tablet 1,000 mg PO DAILY PRN 02/14/23 04/16/23 (Valtrex) Previous Rx's Medication Instructions Recorded bisoprolol fumarate 5 mg tablet 5 mg PO DAILY #90 tabs 12/19/22 omeprazole 40 mg capsule,delayed 40 mg PO DAILY #90 caps 12/19/22 release hydrocortisone 1 % topical cream 1 applic topical TID PRN itching 12/23/22 (Anti-Itch (hydrocortisone)) #120 grams losartan 50 mg tablet 50 mg PO DAILY #30 tabs 12/23/22 metformin 1,000 mg tablet 1,000 mg PO BID Diabetes 30 days 12/23/22 #60 tabs medroxyprogesterone 150 mg/mL 150 mg IM [id number] control 11/08/23 intramuscular suspension #1 mL atorvastatin 40 mg tablet (Lipitor) 40 mg PO DAILY #30 tabs 03/24/23 ciclopirox 8 % topical solution 1 applic topical DAILY fungus 90 04/11/23 days #6.6 mL urea 40 % topical cream 1 applic topical BID #60 applic 04/11/23 diclofenac sodium 75 mg 75 mg PO BID . 30 days #60 tabs 04/15/23 tablet,delayed release levocetirizine 5 mg tablet 5 mg PO DAILY #30 tabs 04/15/23 amoxicillin 875 mg-potassium 1 tab PO BID 10 days #20 tabs 04/27/23 clavulanate 125 mg tablet Allergies Allergy/AdvReac Type Severity Reaction Status Date / Time sulfamethoxazole Allergy Unknown Rash Verified 04/16/23 14:34 [From Bactrim] trimethoprim [From Bactrim] Allergy Unknown Rash Verified 04/16/23 14:34 [facility] Disclaimer: The information contained in this section may have been updated after the patient was seen, as this information can be updated by other users. Medical History Chest pain Surgical History H/O splenectomy History of partial pancreatectomy Hx of section Family History Mother Stroke Father Heart attack Family/Other Heart attack Other Cancer Hypertension Social History Smoking Status: Never smoker alcohol intake: never substance use type: denies use current occupational status: employed Travel in the last 8 weeks: Inside the [place] household members: family housing: house ROS Obtained: Yes All systems reviewed & no additional complaints except as documented Physical Exam General General appearance: alert Respiratory Respiratory exam: Present normal lung sounds bilaterally Cardiovascular Cardiovascular exam: Present regular rate Extremities Exam Extremities exam: Present other (There is a 4 cm laceration on the medial aspect of the right upper extremity no retained foreign bodies or debris she has normal flexion and extension throughout normal neurovascular exam) Neurological Exam Neurological exam: Present alert Medical Decision Making Mikal Inquiry Pt receiving controlled substance: No Vital Signs: 04/27/23 12:54 Temperature 98.2 F Temperature Source Oral Pulse Rate [Radial] 89 Respiratory Rate 18 Blood Pressure [Left Arm] 172/106 H Blood Pressure Mean [Left Arm] 128 Blood Pressure Source [Left Arm] Automatic Cuff Blood Pressure Position [Left Arm] Sitting 02 Sat by Pulse Oximetry 100 Oxygen Delivery Method Room Air Orders (Tests/Meds): ED MEDICATIONS Discontinued Medications Generic Name Dose Route Start Last Admin Trade Name Manjeet PRN Reason Stop Dose Admin Acetaminophen 1,000 mg 04/27/23 13:32 04/27/23 13:52 Acetaminophen 500mg Tab PO 04/27/23 13:33 1,000 mg ONCE ONE Administration Amoxicillin/Clavulanate Potassium 1 each 04/27/23 13:32 04/27/23 13:52 Amoxicillin/Clavulanate Potassium 875/125mg Tablet PO 04/27/23 13:33 1 each ONCE ONE Administration ORDERS Category Date Time Status Forearm XR right 2 views [XR forearm RT 2V] Stat Exams 04/27/23 13:11 Completed Medical Decision Narrative: 42-year-old female attacked by dog and the dog's own home therefore I am calling this a provoked attack. The dog is also vaccinated send-unlikely that this is a rabies situation. Discussed the risk and benefits of rabies vaccine and immunoglobulin to the patient and she understood and agreed. Will give the patient first dose of Augmentin in the emergency department I also discussion with her regarding primary and secondary closure of the wound regarding infection. Given the fact that this is a gaping wound she wanted to close primarily which I agree with. She understand there is some risk for an infection. The wound was extensively irrigated she was given prophylactic antibiotics and given return precautions after the wound was closed Procedures Laceration Laceration 1: Site: upper extremity Side (If applicable): right Size (cm): 4 Description: linear Depth: simple, single layer Local Anesthetic: lidocaine 1% and with epi Amount of anesthesia used (mL): 8 Pre-repair: wound explored, irrigated extensively, deep structures intact and wound margins revised Skin layer closed with: nylon Size (cm): 3-0 Number of sutures: 8 Technique: simple, interrupted Critical Care Critical Care Time Critical Care Time: No
== END 2023-04-27 14:20 | disposition home or self-care (01) ==
PROVIDERS: Emergency Provider Student in an Organized Health Care Education/Training Program; PCP Nurse Practitioner Family
DX: S51.811A Laceration without foreign body of right forearm, initial encounter (principal); W54.0XXA Bitten by dog, initial encounter
CPT/HCPCS: 12002; 73090; 99283

== ENCOUNTER 2023-05-06 13:26 | Outpatient (CLI) | payer OTHER, SELFPAY ==
[2023-05-06 14:10] LABS: Basophils # 0.1 K/mm3 (0-0.2); Basophils % 0.5 % (0.1-2.0); Eosinophils # 0.4 K/mm3 (0.0-0.4); Hematocrit 40.7 % (37.0-47.0); Lymphocytes # 2.5 K/mm3 (0.7-4.5); Lymphocytes % 26.9 % (10-50); Mean Corpuscular HGB Conc 31.9 g/dL (31.8-35.4); Mean Corpuscular Hemoglobin 30.7 pg (27.0-31.2); Mean Corpuscular Volume 96.1 fl (81-99); Monocytes # 0.6 K/mm3 (0.1-1.0); Monocytes % 6.6 % (1.7-9.3); Neutrophils # 5.8 K/mm3 (1.8-7.8); Neutrophils % 62.1 % (37.0-80.0); Platelet Count 557 K/mm3 (142-424); Red Blood Count 4.24 M/mm3 (4.20-5.40); Red Cell Distribution Width 13.4 % (11.5-17.5); White Blood Count 9.3 K/mm3 (4.8-10.8)
[2023-05-06 15:09] LABS: Ferritin 215 ng/ml (6.24-137)
== END 2023-05-06 23:59 ==
LOC: LAB 13:26
PROVIDERS: PCP Nurse Practitioner Family; Visit Provider Nurse Practitioner Family
DX: D50.9 Iron deficiency anemia, unspecified (principal); R79.89 Other specified abnormal findings of blood chemistry
CPT/HCPCS: 36415; 82728; 85025

== ENCOUNTER 2023-07-14 12:45 | Outpatient (CLI) | payer OTHER, SELFPAY ==
[2023-07-14 13:10] LABS: Basophils # 0.1 K/mm3 (0-0.2); Eosinophils # 0.4 K/mm3 (0.0-0.4); Eosinophils % 3.3 % (0.1-12.0); Hematocrit 44.2 % (37.0-47.0); Hemoglobin 14.3 g/dL (12.2-16.2); Lymphocytes # 3.7 K/mm3 (0.7-4.5); Lymphocytes % 31.7 % (10-50); Mean Corpuscular HGB Conc 32.4 g/dL (31.8-35.4); Mean Corpuscular Hemoglobin 31.5 pg (27.0-31.2); Mean Corpuscular Volume 97.2 fl (81-99); Mean Platelet Volume 8.7 fl (7.4-10.4); Monocytes # 0.6 K/mm3 (0.1-1.0); Monocytes % 4.7 % (1.7-9.3); Neutrophils % 59.3 % (37.0-80.0); Platelet Count 576 K/mm3 (142-424); Red Blood Count 4.55 M/mm3 (4.20-5.40); Red Cell Distribution Width 13.2 % (11.5-17.5); White Blood Count 11.8 K/mm3 (4.8-10.8)
[2023-07-14 13:42] LABS: Chloride 107 mmol/L (98-107); Potassium 5.8 mmoL/L (3.5-5.1); Sodium 142 mmol/L (136-145)
[2023-07-14 13:44] LABS: Alanine Aminotransferase 54 U/L (12-78); Alkaline Phosphatase 84 U/L (38-126); Aspartate Amino Transferase 34 U/L (14-36); Bilirubin,Total 0.5 mg/dl (0.2-1.3); Blood Urea Nitrogen 26 mg/dl (7-17); Estimated Glomerular Filt Rate 61 ml/min (>60); GFR (African American) 74 ML/MIN (>60)
[2023-07-14 13:45] LABS: Albumin Level 4.3 g/dl (3.5-5.0); Albumin/Globulin Ratio 1.7 (1.1-1.8); Anion Gap 14.8 mEq/L (5-15); Calcium 10.2 mg/dl (8.4-10.2); Carbon Dioxide 26 mmol/L (22.0-30.0); Chol/HDL Ratio 4.4 (1-3.5); Cholesterol 127 mg/dl (140-200); Globulin 2.6 g/dL (1.3-3.2); Glucose 154 mg/dl (74-100); HDL Cholesterol 29 mg/dl (40-60); Total Protein,Serum 6.9 g/dl (6.3-8.2); Triglycerides 129 mg/dl (30-150); VLDL Cholesterol 26 mg/dL (0-40)
[2023-07-14 13:56] LABS: Direct LDL Cholesterol 65.44 mg/dL (100-129)
[2023-07-14 14:18] LABS: Thyroid Stimulating Hormone 2.05 uIU/mL (0.465-4.68)
[2023-07-14 14:22] LABS: Ferritin 149 ng/ml (6.24-137)
[2023-07-14 14:31] LABS: Hemoglobin A1C 7.6 % (4.0-6.0)
== END 2023-07-14 23:59 | disposition home or self-care (01) ==
LOC: LAB.DROPOF 12:46
PROVIDERS: PCP Nurse Practitioner Family; Visit Provider Nurse Practitioner Family
DX: E11.9 Type 2 diabetes mellitus without complications (principal); D50.9 Iron deficiency anemia, unspecified; Z79.4 Long term (current) use of insulin; Z79.84 Long term (current) use of oral hypoglycemic drugs; Z79.85 Long-term (current) use of injectable non-insulin antidiabetic drugs
CPT/HCPCS: 80053; 80061; 82728; 83036; 84443; 85025

== ENCOUNTER 2023-07-18 18:00 | Outpatient (CLI) | payer OTHER, SELFPAY ==
[2023-07-18 15:28] LABS: Potassium 5.2 mmoL/L (3.5-5.1)
[2023-07-18 16:38] LABS: Vitamin B12 500 pg/mL (239-931)
[2023-07-18 16:40] LABS: Folate 4.63 ng/mL
== END 2023-07-18 23:59 | disposition home or self-care (01) ==
LOC: LAB.DROPOF 07-19 09:32
PROVIDERS: PCP Nurse Practitioner Family; Visit Provider Nurse Practitioner Family
DX: E87.5 Hyperkalemia (principal); D64.9 Anemia, unspecified; Z68.29 Body mass index [BMI] 29.0-29.9, adult
CPT/HCPCS: 82607; 82746; 84132

== ENCOUNTER 2023-07-29 14:15 | Outpatient (POV) | payer OTHER, SELFPAY | END 2023-07-29 23:59 | disposition home or self-care (01) | LOC: SC 14:15 | PROVIDERS: Visit Provider Specialist/Technologist | DX: Z00.00 Encounter for general adult medical examination without abnormal findings (principal) ==

== ENCOUNTER 2023-10-27 16:02 | Outpatient (CLI) | payer OTHER, SELFPAY ==
[2023-10-27 13:51] LABS: Basophils # 0.1 K/mm3 (0-0.2); Basophils % 1.1 % (0.1-2.0); Eosinophils # 0.3 K/mm3 (0.0-0.4); Eosinophils % 2.9 % (0.1-12.0); Hematocrit 47.8 % (37.0-47.0); Hemoglobin 14.5 g/dL (12.2-16.2); Lymphocytes % 47.6 % (10-50); Mean Corpuscular HGB Conc 30.4 g/dL (31.8-35.4); Mean Corpuscular Hemoglobin 31.1 pg (27.0-31.2); Mean Corpuscular Volume 102.3 fl (81-99); Mean Platelet Volume 8.3 fl (7.4-10.4); Monocytes # 0.4 K/mm3 (0.1-1.0); Monocytes % 4.2 % (1.7-9.3); Neutrophils # 4.7 K/mm3 (1.8-7.8); Neutrophils % 44.3 % (37.0-80.0); Platelet Count 639 K/mm3 (142-424); Red Blood Count 4.67 M/mm3 (4.20-5.40); Red Cell Distribution Width 13.2 % (11.5-17.5); White Blood Count 10.6 K/mm3 (4.8-10.8)
[2023-10-27 14:20] LABS: Albumin Level 4.3 g/dl (3.5-5.0); Chloride 106 mmol/L (98-107)
[2023-10-27 14:21] LABS: Sodium 138 mmol/L (136-145)
[2023-10-27 14:23] LABS: Alanine Aminotransferase 33 U/L (12-78); Aspartate Amino Transferase 27 U/L (14-36); Blood Urea Nitrogen 14 mg/dl (7-17); Carbon Dioxide 25 mmol/L (22.0-30.0); Estimated Glomerular Filt Rate 69 ml/min (>60); GFR (African American) 83 ML/MIN (>60)
[2023-10-27 14:24] LABS: Albumin/Globulin Ratio 1.5 (1.1-1.8); Alkaline Phosphatase 88 U/L (38-126); Bilirubin,Total 0.5 mg/dl (0.2-1.3); Calcium 9.9 mg/dl (8.4-10.2); Chol/HDL Ratio 3.9 (1-3.5); Cholesterol 153 mg/dl (140-200); Globulin 2.8 g/dL (1.3-3.2); Glucose 182 mg/dl (74-100); HDL Cholesterol 39 mg/dl (40-60); Total Protein,Serum 7.1 g/dl (6.3-8.2); Triglycerides 175 mg/dl (30-150); VLDL Cholesterol 35 mg/dL (0-40)
[2023-10-27 14:30] LABS: Hemoglobin A1C 7.7 % (4.0-6.0)
[2023-10-27 14:35] LABS: Direct LDL Cholesterol 73.11 mg/dL (100-129)
[2023-10-27 14:54] LABS: Thyroid Stimulating Hormone 2.12 uIU/mL (0.465-4.68)
== END 2023-10-27 23:59 | disposition home or self-care (01) ==
LOC: LAB.DROPOF 16:02
PROVIDERS: PCP Nurse Practitioner Family; Visit Provider Nurse Practitioner Family
DX: E11.9 Type 2 diabetes mellitus without complications (principal); R22.30 Localized swelling, mass and lump, unspecified upper limb
CPT/HCPCS: 80053; 80061; 83036; 84443; 85025

== ENCOUNTER 2023-10-30 12:54 | Outpatient (CLI) | payer OTHER, SELFPAY ==
--- NOTE | 2023-10-30 12:54 | MM_ITS ---
PROCEDURE INFORMATION: Exam: MG Bilateral Diagnostic Breast Tomosynthesis Exam date and time: 10/30/2023 1:03 PM Age: 43 years old Clinical indication: Right breast palpable lump. TECHNIQUE: Imaging protocol: Bilateral Diagnostic tomosynthesis and 2D mammography including computer-aided detection (CAD) when performed. Unilateral or bilateral exam. Triangular marker placed at palpable concern in the upper right breast, in the true lateral projection. COMPARISON: 1. MG MM DIG SCREENING MAMM BI W/CAD 01/22/2022 9:25 AM 2. MG DMDXUL DIG MAMM-DX UNI-LT 02/26/2013 8:59 AM 3. MG DMDB DIG MAMM-DX [facility] 09/22/2012 8:28 AM 4. BL US BREAST-LT 09/22/2012 8:51 AM FINDINGS: The MAMMOGRAPHY: Breast mammogram findings: Breast composition: There are scattered areas of fibroglandular density. Mass: No suspicious mass. Architectural distortion: None. Calcifications: No suspicious calcifications. Asymmetric density: None. Skin thickening: None. Axillary adenopathy: None. Other: No mammographic findings in the upper right breast at the palpable concern. IMPRESSION: Patient will be recalled for right sonography for further evaluation of right breast lump. No mammographic evidence of malignancy. Further evaluation of a palpable abnormality should be based on clinical grounds regardless of radiographic findings or lack thereof. ASSESSMENT: BI-RADS Category 0: Incomplete: Need Additional Imaging Evaluation and/or Prior Mammograms for Comparison
--- NOTE | 2023-10-30 12:54 | US_ITS ---
PROCEDURE INFORMATION: Exam: US Right Breast Limited Exam date and time: 10/30/2023 1:00 PM Age: 43 years old Clinical indication: Concern for right axillary lump. Technologist notes that patient indicates the area is no longer palpable. TECHNIQUE: Imaging protocol: Limited ultrasound of right breast with image documentation, including axilla when performed. Exam focused on the search and evaluation for mass. COMPARISON: MG MM DIG SCREENING MAMM BI W/CAD 01/22/2022 9:25 AM FINDINGS: ULTRASOUND: Breast ultrasound findings: Targeted sonography of the right axilla demonstrates several sonographically unremarkable axillary lymph nodes, largest up to 2.4 cm. No other findings demonstrated. IMPRESSION: At the area of concern in the right axilla/axillary tail, no mammographic or sonographic finding demonstrated.Further evaluation of a palpable abnormality should be based on clinical grounds regardless of radiographic findings or lack thereof. Please refer to diagnostic mammogram performed on the same date though dictated separately. No mammographic evidence of malignancy. Annual screening mammogram recommended unless otherwise clinically indicated. ASSESSMENT: BI-RADS Category 1: Negative.
== END 2023-10-30 23:59 | disposition home or self-care (01) ==
LOC: RAD 12:54
PROVIDERS: PCP Nurse Practitioner Family; Visit Provider Nurse Practitioner Family
DX: R22.30 Localized swelling, mass and lump, unspecified upper limb (principal)
CPT/HCPCS: 76642; 77062; 77066; G0279

== ENCOUNTER 2024-06-29 14:11 | Outpatient (CLI) | payer OTHER, SELFPAY ==
[2024-06-29 15:00] LABS: Basophils # 0.1 K/mm3 (0-0.2); Basophils % 1.1 % (0.1-2.0); Eosinophils # 0.3 K/mm3 (0.0-0.4); Eosinophils % 3.1 % (0.1-12.0); Hematocrit 41.2 % (37.0-47.0); Hemoglobin 13.8 g/dL (12.2-16.2); Lymphocytes # 4.8 K/mm3 (0.7-4.5); Lymphocytes % 47.7 % (10-50); Mean Corpuscular HGB Conc 33.5 g/dL (31.8-35.4); Mean Corpuscular Hemoglobin 30.5 pg (27.0-31.2); Mean Corpuscular Volume 91.2 fl (81-99); Mean Platelet Volume 9.2 fl (7.4-10.4); Monocytes # 0.7 K/mm3 (0.1-1.0); Monocytes % 7.1 % (1.7-9.3); Neutrophils # 4.1 K/mm3 (1.8-7.8); Neutrophils % 40.8 % (37.0-80.0); Nucleated Red Blood Cells # 0 10^3/uL; Nucleated Red Blood Cells % 0 %; Platelet Count 590 K/mm3 (142-424); Red Blood Count 4.52 M/mm3 (4.20-5.40); Red Cell Distribution Width 12.8 % (11.5-17.5); Red Cell Distribution Width-SD 42.3 fL
[2024-06-29 15:35] LABS: Alanine Aminotransferase 39 U/L (12-78); Albumin Level 4.1 g/dl (3.5-5.0); Alkaline Phosphatase 80 U/L (38-126); Anion Gap 15.7 mEq/L (5-15); Aspartate Amino Transferase 27 U/L (14-36); Bilirubin,Direct 0.2 mg/dl (0.0-0.4); Bilirubin,Indirect 0.3 mg/dL (0.0-0.9); Bilirubin,Total 0.5 mg/dl (0.2-1.3); Bilirubin,Unconjugated 0.2 mg/dL (0.0-1.1); Blood Urea Nitrogen 13 mg/dl (7-17); Calcium 9.9 mg/dl (8.4-10.2); Carbon Dioxide 24 mmol/L (22.0-30.0); Chloride 103 mmol/L (98-107); Chol/HDL Ratio 3.1 (1-3.5); Cholesterol 115 mg/dl (140-200); Estimated Glomerular Filt Rate 109 ml/min (>60); GFR (African American) 132 ML/MIN (>60); Glucose 176 mg/dl (74-100); HDL Cholesterol 37 mg/dl (40-60); Potassium 4.7 mmoL/L (3.5-5.1); Sodium 138 mmol/L (136-145); Total Protein,Serum 7.2 g/dl (6.3-8.2); Triglycerides 140 mg/dl (30-150); VLDL Cholesterol 28 mg/dL (0-40)
[2024-06-29 15:46] LABS: Direct LDL Cholesterol 46.99 mg/dL (100-129)
[2024-06-29 15:53] LABS: Free T4 (Free Thyroxine) 1.05 ng/dl (0.78-2.19)
[2024-06-29 16:10] LABS: Thyroid Stimulating Hormone 1.54 uIU/mL (0.465-4.68)
== END 2024-06-29 23:59 | disposition home or self-care (01) ==
LOC: LAB 14:12
PROVIDERS: PCP Nurse Practitioner Family; Visit Provider Internal Medicine
DX: R42 Dizziness and giddiness (principal); E11.9 Type 2 diabetes mellitus without complications; D50.9 Iron deficiency anemia, unspecified; Z79.4 Long term (current) use of insulin
CPT/HCPCS: 36415; 80048; 80061; 80076; 84439; 84443; 85025

== ENCOUNTER 2024-07-16 14:44 | Outpatient (CLI) | payer OTHER, SELFPAY ==
[2024-07-16 14:40] LABS: Microalbumin/Creatinine Ratio 13.2
[2024-07-16 14:44] LABS: Creatinine,Urine Random 115 mg/dL (Not Estab.)
[2024-07-16 14:57] LABS: Albumin Level 4.4 g/dl (3.5-5.0)
[2024-07-16 14:58] LABS: Chloride 104 mmol/L (98-107); Potassium 5.3 mmoL/L (3.5-5.1); Sodium 140 mmol/L (136-145)
[2024-07-16 15:00] LABS: Alanine Aminotransferase 45 U/L (12-78); Alkaline Phosphatase 83 U/L (38-126); Anion Gap 13.3 mEq/L (5-15); Aspartate Amino Transferase 33 U/L (14-36); Bilirubin,Total 0.4 mg/dl (0.2-1.3); Blood Urea Nitrogen 16 mg/dl (7-17); Carbon Dioxide 28 mmol/L (22.0-30.0); Estimated Glomerular Filt Rate 91 ml/min (>60); GFR (African American) 111 ML/MIN (>60)
[2024-07-16 15:01] LABS: Albumin/Globulin Ratio 1.7 (1.1-1.8); Calcium 9.9 mg/dl (8.4-10.2); Globulin 2.6 g/dL (1.3-3.2); Glucose 151 mg/dl (74-100); Magnesium 1.7 mg/dl (1.6-2.3)
[2024-07-16 15:42] LABS: Hemoglobin A1C 8.5 % (4.0-6.0)
== END 2024-07-16 23:59 | disposition home or self-care (01) ==
LOC: LAB.DROPOF 14:44
PROVIDERS: PCP Nurse Practitioner Family; Visit Provider Nurse Practitioner Family
DX: D69.6 Thrombocytopenia, unspecified (principal); E11.9 Type 2 diabetes mellitus without complications; Z79.84 Long term (current) use of oral hypoglycemic drugs; Z79.85 Long-term (current) use of injectable non-insulin antidiabetic drugs; Z79.4 Long term (current) use of insulin
CPT/HCPCS: 80053; 81241; 82043; 82570; 83036; 83735

== ENCOUNTER 2024-10-08 13:25 | Outpatient (CLI) | payer OTHER, SELFPAY ==
[2024-10-08 13:46] LABS: Hematocrit 45.5 % (37.0-47.0); Hemoglobin 14.7 g/dL (12.2-16.2); Immature Granulocytes % 0.1 %; Mean Corpuscular HGB Conc 32.3 g/dL (31.8-35.4); Mean Corpuscular Hemoglobin 30.4 pg (27.0-31.2); Mean Corpuscular Volume 94.2 fl (81-99); Nucleated Red Blood Cells % 0 %; Platelet Count 571 K/mm3 (142-424); Red Blood Count 4.83 M/mm3 (4.20-5.40); Red Cell Distribution Width-SD 42.9 fL; White Blood Count 9.5 K/mm3 (4.8-10.8)
--- OUTSIDE RECORDS SUMMARY | 2024-10-11 13:36 | XMS_ITS | Clinical Summary ---
Author Organization Healthcare Address [address] [place] [address] Care Team Providers Care Vehicle Modification Technician Name Role Phone Unavailable Primary Care Provider Unavailabl e Social History Tobacco Use Types Packs/Day Years Used Date Smoking Tobacco: Never Assessed Comments Unknown Sex and Gender Information Value Date Recorded Sex Assigned at Not on file Legal Sex Female 8:21 PM EDT Gender Identity Not on file Sexual Orientation Not on file Plan of Treatment Health Maintenance Due Date Last Done Comments [facility]-Depression Screening 1981 [facility]-Infant/Child/Adol SDOH Screenings 1981 [facility]-Varicella Vaccines (1 of 2 - 13+ 2-dose series) 1994 HPV Vaccines (1 - 3-dose series) 1996 [facility]- SDOH Screenings 1999 [facility]-Adult SDOH Screenings 1999 [facility]-Hepatitis B Vaccines (1 of 3 - 19+ 3-dose series) 2000 [facility]-Pap Smear 2002 [facility]-Cervical Cancer Screening 2011 [facility]-HPV/Cotest 2011 [facility]-DTaP,Tdap,and Td Vaccines (2 - Td or Tdap) 01/21/2022 01/22/2012, 12/02/2002 [id number] Vaccine ( season) 2023 11/02/2021, 02/11/2021, 01/14/2021 [facility]-Influenza Vaccine (#1) 2024 [facility]-Zoster Vaccines (1 of 2) 2031 [facility]-Hepatitis A Vaccines Aged Out 03/03/2018 No longer eligible based on patient's age to complete this topic [facility]-HIB Vaccines Aged Out No longer e ligible based on patient's age to complete this topic [facility]-IPV Vaccines Aged Out No longer e ligible based on patient's age to complete this topic [facility]-Pneumococcal Vaccine: Pediatrics (0 to 5 Years) and At-Risk Patients (6 to 49 Years) Aged Out No longer eligible b ased on patient's age to complete this topic [facility]-Rotavirus Vaccines Aged Out No lo nger eligible based on patient's age to complete this topic Insurance [employer]
== END 2024-10-08 23:59 ==
LOC: LAB.DROPOF 10-11 13:26
PROVIDERS: PCP Nurse Practitioner Family; Visit Provider Nurse Practitioner Family
DX: D69.6 Thrombocytopenia, unspecified (principal)
CPT/HCPCS: 85025